=== PATIENT | female | born 1960 | race Caucasian/White ===

== ENCOUNTER 2016-11-10 08:36 | Emergency (ER) | payer MEDICAID ==
[~2016-11-10] VITALS: Ht 167.6 cm; Wt 70.0 kg
[~2016-11-10 08:36] MED LIST: LEVO500T15 PO; P50 PO; proair INH
[2016-11-10] MEDS ORDERED: KETOROLAC 60MG/2ML VIAL IM ONE (11:00)
[2016-11-10 11:38] LABS: BASOPHILS % 0.4 % (0.0-2.0); EOSINOPHILS % 0.9 % (0.0-5.0); HEMATOCRIT. 39.3 % (36.0-48.0); HEMOGLOBIN. 13.9 g/dL (12.0-16.0); LYMPHOCYTES % 28.8 % (20.0-50.0); MEAN CORPUSCULAR HEMOGLOBIN 32.9 pg (28.0-32.0); MEAN CORPUSCULAR VOLUME 93.3 fL (81.0-99.0); MEAN PLATELET VOLUME 8.8 fl (7.4-10.4); MONOCYTES % 5.6 % (2.0-8.0); NEUTROPHILS % 64.3 % (40.0-76.0); PLATELET 220 x1000/uL (130-400); RED BLOOD CELL COUNT 4.22 mill/uL (4.2-5.4); RED CELL DISTRIBUTION WIDTH 13.6 % (11.6-14.6)
[2016-11-10 11:51] LABS: CARBON DIOXIDE 31 mEq/L (21-32); CHLORIDE 100 mEq/L (98-107)
[2016-11-10 11:58] LABS: D-DIMER 0.92 mg/L FEU (<0.50); PARTIAL THROMBOPLASTIN TIME 25.2 sec (24.0-34.0)
[2016-11-10 13:43] VITALS: BP 148/79
== END 2016-11-10 13:44 | disposition home or self-care (01) ==
LOC: ER 08:43
DX: M79.662 Pain in left lower leg (principal); M79.661 Pain in right lower leg; R03.0 Elevated blood-pressure reading, without diagnosis of hypertension; Z88.0 Allergy status to penicillin; J45.909 Unspecified asthma, uncomplicated; F12.90 Cannabis use, unspecified, uncomplicated
CPT/HCPCS: 36415; 80048; 85025; 85379; 85610; 85730; 93970; 96372; 99285; J1885; Z7610

== ENCOUNTER 2016-11-21 00:38 | Emergency (ER) | payer MEDICAID ==
[~2016-11-21] VITALS: Ht 160 cm; Wt 68.0 kg
[2016-11-21] MEDS ORDERED: KETOROLAC 30MG/ML VIAL IV STA (06:33)
[2016-11-21] MEDS ORDERED: SODIUM CHLORIDE 0.9% 1,000 ML IV ONE (06:33)
[2016-11-21 06:54] LABS: BASOPHILS % 0.6 % (0.0-2.0); EOSINOPHILS % 1.5 % (0.0-5.0); HEMATOCRIT. 41.1 % (36.0-48.0); HEMOGLOBIN. 14.6 g/dL (12.0-16.0); LYMPHOCYTES % 31.2 % (20.0-50.0); MEAN CORPUSCULAR HEMOGLOBIN 32.8 pg (28.0-32.0); MEAN CORPUSCULAR VOLUME 92.6 fL (81.0-99.0); MEAN PLATELET VOLUME 8.4 fl (7.4-10.4); MONOCYTES % 6.7 % (2.0-8.0); PLATELET 211 x1000/uL (130-400); RED BLOOD CELL COUNT 4.44 mill/uL (4.2-5.4); RED CELL DISTRIBUTION WIDTH 13.9 % (11.6-14.6)
[2016-11-21 07:03] LABS: CLARITY URINE CLOUDY (CLEAR); COLOR URINE DARK YELLOW (YELLOW); GLUCOSE URINE 2+ (NEGATIVE); KETONES URINE NEGATIVE (NEGATIVE); LEUKOCYTE ESTERASE URINE 2+ (NEGATIVE); NITRITE URINE NEGATIVE (NEGATIVE); OCCULT BLOOD URINE NEGATIVE (NEGATIVE); PH URINE 5.5 (4.5-8.0); PROTEIN URINE 1+ (NEGATIVE); SPECIFIC GRAVITY URINE 1.036 (1.005-1.030)
[2016-11-21 07:09] LABS: CARBON DIOXIDE 30 mEq/L (21-32); CHLORIDE 99 mEq/L (98-107); CREATINE KINASE 40 IU/L (26-192)
[2016-11-21 07:36] LABS: *AMPHETAMINES SCREEN URINE PRESUMTIVE POSITIVE (NEGATIVE); *BARBITURATES SCREEN URINE NEGATIVE (NEGATIVE); *BENZODIAZEPINES SCREEN URINE PRESUMTIVE POSITIVE (NEGATIVE); *COCAINE SCREEN URINE NEGATIVE (NEGATIVE); CANNABINOID URINE SCREEN PRESUMTIVE POSITIVE (NEGATIVE); METHADONE URINE SCREEN NEGATIVE (NEGATIVE); OPIATES URINE SCREEN NEGATIVE (NEGATIVE); PHENCYCLIDINE URINE SCREEN NEGATIVE (NEGATIVE)
[2016-11-21] MEDS ORDERED: LORAZEPAM 2MG/ML CPJ IV SCH (07:45)
[2016-11-21] MEDS ORDERED: LORAZEPAM 2MG/ML CPJ IV ONE (09:30)
[2016-11-21] MEDS ORDERED: HALOPERIDOL LACTATE 5MG/ML VIAL IM ONE (10:30)
[2016-11-21 20:15] VITALS: BP 172/99
== END 2016-11-21 22:22 | disposition home or self-care (01) ==
LOC: ER 00:38
DX: M79.605 Pain in left leg (principal); M79.604 Pain in right leg; F15.10 Other stimulant abuse, uncomplicated; F12.10 Cannabis abuse, uncomplicated; R73.9 Hyperglycemia, unspecified; J45.909 Unspecified asthma, uncomplicated; D64.9 Anemia, unspecified; Z88.0 Allergy status to penicillin
CPT/HCPCS: 36415; 80053; 80305; 81001; 81025; 82550; 83605; 85025; 96361; 96372; 96374; 96375; 99285; J1630; J1885; J2060; J7030; Z7610

== ENCOUNTER 2023-03-30 19:46 | Emergency (ER) | payer MEDICAID, OTHER ==
[~2023-03-30] VITALS: Ht 160 cm; Wt 69.0 kg
[~2023-03-30 19:46] MED LIST changes: -LEVO500T15 PO; +LEVO500T2 PO
[2023-03-30 19:54] VITALS: BP 215/114; PULSE 82; RESP 14; TEMP 98.5; O2SAT 98
[2023-03-30 20:33] LABS: BASOPHILS % 0.7 % (0.0-2.0); EOSINOPHILS % 1.4 % (0.0-5.0); HEMATOCRIT. 34.6 % (36.0-48.0); HEMOGLOBIN. 12.2 g/dL (12.0-16.0); LYMPHOCYTES % 20.6 % (20.0-50.0); MEAN CORPUSCULAR HEMOGLOBIN 33.2 pg (28.0-32.0); MEAN CORPUSCULAR HGB CONC 35.2 g/dL (31.0-37.0); MEAN CORPUSCULAR VOLUME 94.2 fL (81.0-99.0); MONOCYTES % 6.4 % (2.0-8.0); NEUTROPHILS % 70.9 % (40.0-76.0); PLATELET 211 x1000/uL (130-400); RED BLOOD CELL COUNT 3.68 mill/uL (4.2-5.4); RED CELL DISTRIBUTION WIDTH 13.7 % (11.6-14.6); WHITE BLOOD COUNT 9.1 x1000/uL (4.5-11.0)
[2023-03-30 20:47] LABS: ALANINE AMINOTRANSFERASE 14 IU/L (10-49); ALBUMIN 3.6 g/dL (3.2-4.8); ASPARTATE AMINOTRANSFERASE 20 IU/L (<34); BILIRUBIN TOTAL 0.7 mg/dL (0.1-1.0); CALCIUM 8.7 mg/dL (8.7-10.4); CARBON DIOXIDE 28 mEq/L (21-32); CHLORIDE 105 mEq/L (98-107); CREATININE 0.8 mg/dL (0.6-1.0); GLUCOSE 142 mg/dL (70-105); POTASSIUM 4.1 mEq/L (3.5-5.1); PROTEIN TOTAL 7.1 g/dL (6.0-8.3); SODIUM 140 mEq/L (136-145); UREA NITROGEN BLOOD 21 mg/dL (9-23)
[2023-03-30 20:51] LABS: CLARITY URINE TURBID (CLEAR); COLOR URINE YELLOW (YELLOW); GLUCOSE URINE NEGATIVE (NEGATIVE); KETONES URINE NEGATIVE (NEGATIVE); LEUKOCYTE ESTERASE URINE 2+ (NEGATIVE); NITRITE URINE POSITIVE (NEGATIVE); OCCULT BLOOD URINE 2+ (NEGATIVE); PROTEIN URINE 3+ (NEGATIVE); SPECIFIC GRAVITY URINE 1.019 (1.005-1.030)
[2023-03-30 21:18] LABS: BACTERIA URINE 4+; SQUAMOUS EPITHELIAL CELL URINE 1+ /lpf (RARE/1+); WBC URINE TNTC /hpf (0-2)
[2023-03-31] MEDS ORDERED: NITR100C MT (01:44)
[2023-03-31] MEDS ORDERED: CLIN-116 MT (01:44)
== END 2023-03-31 02:19 | disposition home or self-care (01) ==
LOC: ER 19:46
DX: L03.90 Cellulitis, unspecified (principal); N39.0 Urinary tract infection, site not specified; J45.909 Unspecified asthma, uncomplicated; D64.9 Anemia, unspecified; Z88.0 Allergy status to penicillin
CPT/HCPCS: 36415; 71045; 80053; 81003; 85025; 87077; 87186; 93005; 93970; 99285

== ENCOUNTER 2024-03-22 16:10 | Emergency (ER) | payer MEDICARE, OTHER ==
[~2024-03-22] VITALS: Ht 167.6 cm; Wt 72.0 kg
[~2024-03-22 16:10] MED LIST changes: +AMLO10TA80 PO; +CLON0.1T PO; -LEVO500T2 PO; +LOSA100T33 PO; -P50 PO; -proair INH
[2024-03-22 16:14] VITALS: BP 194/110; PULSE 86; RESP 18; TEMP 98.2; O2SAT 98
[2024-03-22] MEDS ORDERED: KETOROLAC 15MG/ML VIAL IV NR (21:15)
[2024-03-22] MEDS ORDERED: SODIUM CHLORIDE 0.9% 500 ML IV ONE (21:15)
[2024-03-22] MEDS ORDERED: METRONIDAZOLE 500 MG PREMIX 100 ML IV NR (21:30)
[2024-03-22] MEDS ORDERED: LEVOFLOXACIN 500MG PREMIX 100 ML IV NR (21:30)
[2024-03-23 00:52] LABS: BASOPHILS % 0.4 % (0.0-2.0); EOSINOPHILS % 0.8 % (0.0-5.0); HEMATOCRIT. 30.6 % (36.0-48.0); HEMOGLOBIN. 10.8 g/dL (12.0-16.0); LYMPHOCYTES % 16.2 % (20.0-50.0); MEAN CORPUSCULAR HEMOGLOBIN 33.1 pg (28.0-32.0); MEAN CORPUSCULAR HGB CONC 35.3 g/dL (31.0-37.0); MEAN CORPUSCULAR VOLUME 93.8 fL (81.0-99.0); MEAN PLATELET VOLUME 7.9 fl (7.4-10.4); MONOCYTES % 6.7 % (2.0-8.0); NEUTROPHILS % 75.9 % (40.0-76.0); PLATELET 231 x1000/uL (130-400); RED BLOOD CELL COUNT 3.26 mill/uL (4.2-5.4); RED CELL DISTRIBUTION WIDTH 14.5 % (11.6-14.6); WHITE BLOOD COUNT 10.6 x1000/uL (4.5-11.0)
[2024-03-23 00:55] LABS: CALCIUM 8.8 mg/dL (8.7-10.4)
[2024-03-23 00:59] LABS: CREATININE 1.2 mg/dL (0.6-1.0)
[2024-03-23 02:10] LABS: INR 0.9; PROTHROMBIN TIME 10.5 sec (9.6-11.0)
== END 2024-03-23 03:04 | disposition left against medical advice (07) ==
LOC: ER 16:10
DX: K80.00 Calculus of gallbladder with acute cholecystitis without obstruction (principal); R60.9 Edema, unspecified; J45.909 Unspecified asthma, uncomplicated; D64.9 Anemia, unspecified; E11.9 Type 2 diabetes mellitus without complications; Z79.899 Other long term (current) drug therapy; Z88.0 Allergy status to penicillin
CPT/HCPCS: 36415; 71045; 74176; 80048; 85025; 99284

== ENCOUNTER → 2024-10-17 | Outpatient (CLI) | payer MEDICARE, OTHER ==
[2024-10-17 11:52] LABS: BASOPHILS % 0.5 % (0.0-2.0); EOSINOPHILS % 1.1 % (0.0-5.0); HEMATOCRIT. 27.4 % (36.0-48.0); HEMOGLOBIN. 9.4 g/dL (12.0-16.0); LYMPHOCYTES % 12.5 % (20.0-50.0); MEAN PLATELET VOLUME 7.4 fl (7.4-10.4); MONOCYTES % 4.8 % (2.0-8.0); NEUTROPHILS % 81.1 % (40.0-76.0); PLATELET 214 x1000/uL (130-400); RED BLOOD CELL COUNT 2.83 mill/uL (4.2-5.4); RED CELL DISTRIBUTION WIDTH 14.6 % (11.6-14.6)
[2024-10-17 12:03] LABS: INR 0.9
[2024-10-17 12:22] LABS: UREA NITROGEN BLOOD 51 mg/dL (9-23)
[2024-10-17 12:23] LABS: ASPARTATE AMINOTRANSFERASE 35 IU/L (<34)
[2024-10-17 12:24] LABS: BILIRUBIN TOTAL 0.4 mg/dL (0.1-1.0); PROTEIN TOTAL 5.9 g/dL (6.0-8.3)
[2024-10-17 12:33] LABS: CREATININE 2.3 mg/dL (0.6-1.0)
== END | disposition home or self-care (01) ==
LOC: LAB 10:37
PROVIDERS: ATTEND Internal Medicine Critical Care Medicine
DX: Z01.812 Encounter for preprocedural laboratory examination (principal); I10 Essential (primary) hypertension; D50.9 Iron deficiency anemia, unspecified; R79.89 Other specified abnormal findings of blood chemistry
CPT/HCPCS: 36415; 80053; 85025